=== PATIENT | female | born 1995 | race Caucasian/White ===

== ENCOUNTER 2024-07-22 20:45 | Emergency (ER) | payer BC, SELFPAY ==
[2024-07-22 20:47] VITALS: BP 130/91
--- NOTE | 2024-07-22 21:40 | ED.GENMED ---
History of Present Illness
General
Chief Complaint: Problems
Source: patient
Exam Limitations: none
Time Seen by Provider: 07/22/24 21:33
History of Present Illness
History of Present Illness:
28-year-old female G2, P1 currently 11 weeks along presents with lower abdominal cramping and vaginal bleeding onset today. She noted the bleeding started out light as spotting became heavier throughout the day. She had a similar episode with her
first but that ended up working out well. She notes the pain is minimal at this point. She passed a large amount of blood after she got home from work earlier today.
Phy Exam
Physical Exam
Physical Exam:
General: Well-appearing female no acute respiratory distress
HEENT: Normocephalic atraumatic
Heart: Regular rate and rhythm no murmurs
Lungs: Clear no wheeze
Abdomen soft nontender nondistended no guarding rebound no bowel sounds
Extremities: No cyanosis
Course
Orders/Labs/Results
Orders:
Orders
07/22/24 21:39
US W Transvaginal Urgent
Reason For Exam: pain, bleeding
07/22/24 21:45
Acetaminophen [Tylenol] 650 mg PO NOW STA
07/22/24 21:54
Type+Screen Urgent
Complete Blood Count/With Diff Urgent
Comprehensive Metabolic Panel Urgent
HCG, Beta Quantitative [Beta HCG Quantitative] Urgent
Is this a screen?: No
07/22/24 23:42
ABO2 Urgent
BBK Wristband Number:
Associate notified that ABO2 has been ordered: [id number]
Date: 07/22/24
Time: 22:19
Qa Engineer ID: [id number]
Abnormal Lab Results
07/22/24
21:54
RBC 4.18 L 10^6/uL
(4.20-5.40)
Hgb 11.8 L g/dL
(12.0-16.0)
Hct 34.5 L %
(37.0-47.0)
Creatinine 0.5 L mg/dL
(0.6-1.0)
07/22/24 21:54
07/22/24 21:54
Vital Signs
Initial and Last Documented VS:
Initial Vital Signs
Temp Pulse Resp BP Pulse Ox
98.2 F 67 18 130/91 99
07/22/24 20:47 07/22/24 20:47 07/22/24 20:47 07/22/24 20:47 07/22/24 20:47
Last Documented Vital Signs
Temp Pulse Resp BP Pulse Ox
98.0 F 64 18 119/77 99
07/22/24 23:37 07/22/24 23:37 07/22/24 20:47 07/22/24 23:37 07/22/24 23:37
Information
Weeks gestation: N/A
Location: N/A
MDM/Problems Addressed
Differential Diagnosis Includes:
Abdominal cramping and vaginal bleeding in first trimester . Consider threatened miscarriage versus implantation bleeding.
Check labs and type and screen. US ordered. Vitals are stable.
*Critical Care Note
Total Time (30-74mins, 75-104mins- exclusive of procedures): Not Applicable
Update Note
Update Note:
Patient reexamined looks well. Beta-hCG 37,366. Ultrasound demonstrates sac in the left horn of the uterus measuring 11 weeks 2 days with a heart rate of 153 bpm. There is a hematoma in the right side of the uterus. This may be the source
of her bleeding. Patient was able to show me prior lab results on her phone and she is a positive. ARC type and screen is pending. No indication necessary for any further intervention here. Will recommend follow-up with [facility].
Bleeding could be from hematoma versus threatened miscarriage
ED Attending Note
-
Portions of this chart may have been created with voice recognition software.� Occasional wrong word or��sound alike� substitutions may have occurred due to the inherent limitations of voice recognition software.
Discharge Plan
Departure
Patient Disposition: Home (Routine Discharge)
Date of Disposition: 07/23/24
Time of Disposition: 00:47
Patient with high blood pressure during this ER visit?: No
Discharge Problem:
Bleeding in early
Instructions: Threatened Miscarriage (DC)
Referrals:
Tayler Diaz MD [Family Provider] -
Activity Restrictions/Additional Instructions:
Rest. Return here for worsening symptoms otherwise follow-up with [facility]
Interventions
Interventions:
*Risk Screen - Suicide Last Done: 07/22/24 20:47
*General Assessment Last Done: 07/22/24 20:47
*Neglect/Abuse Screening Last Done: 07/22/24 20:47
ED- Fall Risk Assessment Last Done: 07/22/24 23:40
*ED COVID-19 Vaccine History Last Done: 07/22/24 20:47
ED-Female Genitourinary Assessment Last Done: 07/22/24 23:40
Discharge Date and Time
Print Language: MALTESE
[2024-07-22 22:16] LABS: % Basophils 0.4 % (0-2); % Eosinophils 1.7 % (0-6); % Immature Granulocytes 0.4 % (0-0.5); % Lymphocytes 31.6 % (20.5-51.1); % Monocytes 7.7 % (1.7-9.3); % Neutrophils 58.2 % (42.2-75.2); Absolute Eosinophils 0.1 10^3/uL (0-0.7); Absolute Lymphocytes 2.6 10^3/uL (1.2-3.4); Absolute Monocytes 0.6 10^3/uL (0.1-0.6); Absolute Neutrophils 4.8 10^3/uL (1.4-6.5); Hematocrit 34.5 % (37.0-47.0); Hemoglobin 11.8 g/dL (12.0-16.0); Mean Corp Hgb Conc. 34.2 g/dL (33.0-37.0); Mean Corpuscular Hgb 28.2 pg (27.0-31.0); Mean Corpuscular Volume 82.5 fL (81.0-99.0); Mean Platelet Volume 10.4 fL (7.4-10.4); Nucleated Red Blood Cells % 0 %; Platelet Count 206 10^3/uL (130-400); Red Blood Cell Count 4.18 10^6/uL (4.20-5.40); White Blood Cell Count 8.2 10^3/uL (4.8-10.8)
[2024-07-22] MEDS: TYLENOL 650 MG PO (22:17)
[2024-07-22 22:18] VITALS: BMI 29.3
[2024-07-22 22:31] LABS: ALT (SGPT) 20 U/L (0-35); AST (SGOT) 24 U/L (14-36); Albumin 4.3 g/dl (3.5-5.0); Alkaline Phosphatase 38 U/L (38-126); Blood Urea Nitrogen 10 mg/dl (7-17); Calcium 9.8 mg/dl (8.4-10.2); Carbon Dioxide 24 mmol/L (22-30); Chloride 104 mmol/L (98-107); Estimated Creatinine Clearance > 125 ml/min; Glucose 88 mg/dl (70-99); Potassium 4.1 mmol/L (3.5-5.1); Sodium 137 mmol/L (135-145); Total Bilirubin 0.5 mg/dl (0.2-1.3); Total Protein 6.8 g/dl (6.3-8.2); eGFR > 60.00
[2024-07-22 23:37] VITALS: BP 119/77
[2024-07-23 01:00] VITALS: BP 107/60
== END 2024-07-23 01:00 | disposition home or self-care (01) ==
LOC: EMR 20:45
PROVIDERS: Physician Assistant; EMERGENCY PHYSICIAN Emergency Medicine; FAMILY PHYSICIAN Family Medicine
DX: O20.9 Hemorrhage in early pregnancy, unspecified (principal); O26.891 Other specified pregnancy related conditions, first trimester; R10.30 Lower abdominal pain, unspecified; Z3A.11 11 weeks gestation of pregnancy
CPT/HCPCS: 99284; 76801; 76817; 80053; 84702; 85025; 86850; 86900; 86901

== ENCOUNTER → 2025-01-16 13:30 | Outpatient (REF) | payer BC, SELFPAY | LOC: PNTC 13:30 | PROVIDERS: ATTENDING PHYSICIAN Student in an Organized Health Care Education/Training Program | DX: Z36.2 Encounter for other antenatal screening follow-up (principal); Z34.93 Encounter for supervision of normal pregnancy, unspecified, third trimester; Z03.79 Encounter for other suspected maternal and fetal conditions ruled out | CPT/HCPCS: 36415; 76816 ==

== ENCOUNTER 2025-02-09 07:14 | Observation (INO) | payer BC, SELFPAY ==
[2025-02-09 07:27] VITALS: BP 135/75; BMI 34.2
== END 2025-02-09 08:30 | disposition home or self-care (01) ==
LOC: LDRP 07:14
PROVIDERS: ADMITTING PHYSICIAN Obstetrics & Gynecology
DX: O36.8130 Decreased fetal movements, third trimester, not applicable or unspecified (principal); Z3A.40 40 weeks gestation of pregnancy; Z91.040 Latex allergy status
CPT/HCPCS: 36415; 59025; 76815; 86850; 86900; 86901; G0378

== ENCOUNTER 2025-02-13 19:41 | Inpatient (IN) | payer BC, SELFPAY ==
[2025-02-13 20:31] VITALS: BP 126/73; BMI 34.9
[2025-02-13 21:49] LABS: Hematocrit 34.0 % (37.0-47.0); Hemoglobin 11.4 g/dL (12.0-16.0); Mean Corp Hgb Conc. 33.5 g/dL (33.0-37.0); Mean Corpuscular Volume 83.5 fL (81.0-99.0); Nucleated Red Blood Cells % 0 %; Platelet Count 240 10^3/uL (130-400); Red Cell Dist. Width 14.2 % (11.5-14.5)
[2025-02-14] MEDS: CYTOTEC 25 MICROGRAM VAG (00:03)
[2025-02-14] MEDS: LR 1000 IV ×2 (04:12→09:13)
[2025-02-14] MEDS: CYTOTEC 50 MICROGRAM PO (05:24)
[2025-02-14] MEDS: CYTOTEC PO ×3 (09:13→16:24)
[2025-02-14] MEDS: PITOCIN 30 UNITS/NSS 500 ML IV (09:13)
[2025-02-14] MEDS: PENICILLIN 110 UNITS IV (09:29)
[2025-02-14] MEDS: SUBLIMAZE 100 MCG EPIDURAL (12:59)
[2025-02-14] MEDS: FENTANYL/BUPIVACAINE 100 EPIDURAL (13:14)
[2025-02-14] MEDS: PENICILLIN 55 UNITS IV (13:46)
[2025-02-14] MEDS: METHERGINE INJECTION 0.2 MG IM (16:54)
[2025-02-14] MEDS: CYTOTEC 800 MCG RECTAL (17:04)
[2025-02-14] MEDS: TRANEXAMIC ACID 100 IV (17:06)
[2025-02-14] MEDS: COLACE 100 MG PO (20:37)
[2025-02-14] MEDS: MOTRIN 600 MG PO (21:05)
[2025-02-15] MEDS: MOTRIN 600 MG PO ×2 (05:05→11:44)
[2025-02-15 05:29] LABS: Hematocrit 31.3 % (37.0-47.0); Hemoglobin 10.2 g/dL (12.0-16.0)
[2025-02-15] MEDS: ZOLOFT 50 MG PO (08:21)
[2025-02-15] MEDS: COLACE 100 MG PO ×2 (08:21→20:14)
[2025-02-15] MEDS: TYLENOL 650 MG PO (11:45)
[2025-02-15 14:28] LABS: Syphilis/T. pallidum Ab Reflex Negative (Negative)
[2025-02-15] MEDS: FEOSOL 325 MG PO (16:40)
[2025-02-15] MEDS: SENOKOT 17.2 MG PO (23:49)
[2025-02-16] MEDS: TYLENOL 650 MG PO (03:34)
[2025-02-16] MEDS: FEOSOL 325 MG PO (07:39)
[2025-02-16] MEDS: COLACE 100 MG PO (07:39)
[2025-02-16] MEDS: ZOLOFT 50 MG PO (07:39)
== END 2025-02-16 11:25 | disposition home or self-care (01) | DRG 807 ==
LOC: LDRP 19:41
PROVIDERS: Student in an Organized Health Care Education/Training Program; ADMITTING PHYSICIAN Obstetrics & Gynecology
PROC: 3E0P7VZ Introduction of Hormone into Female Reproductive, Via Natural or Artificial Opening (ICD-10-PCS; 2025-02-14)
PROC: 10E0XZZ Delivery of Products of Conception, External Approach (ICD-10-PCS; 2025-02-14)
PROC: 3E033VJ Introduction of Other Hormone into Peripheral Vein, Percutaneous Approach (ICD-10-PCS; 2025-02-14)
PROC: 0KQM0ZZ Repair Perineum Muscle, Open Approach (ICD-10-PCS; 2025-02-14)
PROC: 10907ZC Drainage of Amniotic Fluid, Therapeutic from Products of Conception, Via Natural or Artificial Opening (ICD-10-PCS; 2025-02-14)
DX: O48.0 Post-term pregnancy (principal); Z37.0 Single live birth; Z3A.40 40 weeks gestation of pregnancy; O99.824 Streptococcus B carrier state complicating childbirth; O77.0 Labor and delivery complicated by meconium in amniotic fluid; O69.81X0 Labor and delivery complicated by cord around neck, without compression, not applicable or unspecified; O70.1 Second degree perineal laceration during delivery
CPT/HCPCS: 85014; 85018; 85025; 86780; 86850; 86900; 86901